=== PATIENT | female | born 1970 | race Caucasian/White ===

== ENCOUNTER 2022-09-21 08:11 | Emergency (ER) | payer BC, SELFPAY ==
[2022-09-21 08:24] VITALS: BP 141/67; PULSE 96; RESP 18; TEMP 36.7; O2SAT 99
--- NOTE | 2022-09-21 08:37 | ED.GENADULT ---
HPI - General Adult General Chief complaint: Upper Respiratory Infection Stated complaint: covid positive / sore throat Source: patient Mode of arrival: ambulatory Limitations: no limitations History of Present Illness HPI narrative: Patient presents for evaluation of sore throat. On Friday of this week she states she developed fever, chills, sore throat, cough, headache and body aches. She went to also seen Lainey on Friday of this week and had a COVID test which was positive. She attended a family function the day before symptom onset and states that 10 family members all have COVID. She states the majority of her symptoms are improving but her sore throat is not. She is taking Tylenol which does not particularly help. She does not smoke. No history of COVID prior to this time. No additional complaints or concerns. Related Data Allergies Allergy/AdvReac Type Severity Reaction Status Date / Time No Known Allergies Allergy Verified 09/21/22 08:23 Review of Systems Review of Systems: CONSTITUTIONAL: Reports fever and chills. EYES: Denies visual changes, redness, or discharge. ENT: Reports sore throat. Denies rhinorrhea, congestion, or otalgia. CARDIOVASCULAR: Denies chest pain, palpitations, or edema. RESPIRATORY: Reports cough. Denies dyspnea. GASTROINTESTINAL: Denies abdominal pain, nausea, vomiting, or diarrhea. GENITOURINARY: Denies dysuria or hematuria. SKIN: Denies rash or itching. MUSCULOSKELETAL:Reports generalized body aches NEUROLOGIC:Reports headache. Denies numbness, dizziness, or weakness. PSYCHIATRIC: Denies anxiety or depression. PMFSH Past Medical History Medical History No pertinent past medical history Surgical History Surgical History (Updated 09/21/22 @ 08:40 by INGRID Martins, ) No pertinent past surgical history Family History Family History Mother Family history non-contributory Social History Social History Smoking status: Never smoker Gender identity (if verbalized by the patient): Female Spiritual care concerns: No Exam Narrative: GENERAL: Well-appearing, well-nourished, and in no acute distress. HEAD: Normocephalic, atraumatic. EYES: PERRLA and EOMI. ENT: Nares clear, no rhinorrhea or epistaxis. Mucous membranes moist. Posterior pharyngeal erythema without exudate. Uvula is midline. Bilateral TMs pearly luna nonbulging NECK: Supple. No adenopathy or masses. No carotid bruits or JVD CHEST: Clear to auscultation. No respiratory distress. No wheezes rales or rhonchi HEART: Regular rate and rhythm. No murmur heard. Normal peripheral pulses. ABDOMEN: Soft, nontender, nondistended, normal active bowel sounds. EXTREMITIES: Normal range of motion. No edema. SKIN: Warm, dry, no rash. NEURO: No focal deficits. Alert and oriented x3. PSYCH: Normal mood and affect. Course Course Emergency Course: This is a 51-year-old female who presented for evaluation of sore throat with recent positive COVID test. Unfortunately we do not have rapid strep testing. Will send throat culture. Discussed waiting for results vs starting abx today. She would like to be treated. Start amoxicillin. Increase hydration. [id number] agents for symptom management. Follow up with primary provider. Go to the ER for difficulty breathing or swelling. Patient in agreement plan of care. Level of Care: Express Care Visit Vital Signs Vital signs: Vital Signs Temperature 36.7 C 09/21/22 08:24 Pulse Rate 96 09/21/22 08:24 Respiratory Rate 18 09/21/22 08:24 Blood Pressure 141/67 H 09/21/22 08:24 Pulse Oximetry 99 09/21/22 08:24 Oxygen Delivery Room Air 09/21/22 08:24 Temperature 36.7 C 09/21/22 08:24 Pulse Rate 96 09/21/22 08:24 Respiratory Rate 18 09/21/22 08:24 Bl
== END 2022-09-21 08:40 | disposition home or self-care (01) ==
PROVIDERS: Emergency Provider Nurse Practitioner; PCP Family Medicine
DX: U07.1 COVID-19 (principal)
CPT/HCPCS: 87081; 99213; G0463